=== PATIENT | female | born 1980 | race Caucasian/White ===

== ENCOUNTER → 2025-03-17 13:08 | Outpatient (BNVA) | payer MEDICAID, SELFPAY | PROVIDERS: Visit Provider Nurse Practitioner Women's Health | DX: Z34.80 Encounter for supervision of other normal pregnancy, unspecified trimester (principal) | CPT/HCPCS: 84315 ==

== ENCOUNTER → 2025-03-23 14:20 | Outpatient (BNVA) | payer MEDICAID, SELFPAY | PROVIDERS: Visit Provider Nurse Practitioner Women's Health | DX: Z36.9 Encounter for antenatal screening, unspecified (principal) | CPT/HCPCS: 76816 ==

== ENCOUNTER → 2025-03-28 08:00 | Outpatient (BNVA) | payer MEDICAID, SELFPAY | PROVIDERS: Visit Provider Nurse Practitioner Women's Health | DX: Z34.90 Encounter for supervision of normal pregnancy, unspecified, unspecified trimester (principal) | CPT/HCPCS: 80307; 84315; 87086 ==

== ENCOUNTER → 2025-04-20 07:57 | Outpatient (BNVA) | payer MEDICAID, BC, SELFPAY | PROVIDERS: Visit Provider Nurse Practitioner Women's Health | DX: O26.893 Other specified pregnancy related conditions, third trimester (principal); Z3A.38 38 weeks gestation of pregnancy | CPT/HCPCS: 76816 ==

== ENCOUNTER → 2025-04-27 08:19 | Outpatient (BNVA) | payer BC, MEDICAID, SELFPAY | PROVIDERS: Visit Provider Obstetrics & Gynecology | DX: O09.93 Supervision of high risk pregnancy, unspecified, third trimester (principal) | CPT/HCPCS: 84315; 86850; 86900; 87081 ==

== ENCOUNTER → 2025-05-04 08:01 | Outpatient (BNVA) | payer BC, MEDICAID, SELFPAY | PROVIDERS: Visit Provider Obstetrics & Gynecology | DX: O09.899 Supervision of other high risk pregnancies, unspecified trimester (principal) | CPT/HCPCS: 84315 ==

== ENCOUNTER → 2025-05-11 09:30 | Outpatient (BNVA) | payer BC, MEDICAID, SELFPAY | PROVIDERS: Visit Provider Obstetrics & Gynecology | DX: Z36.9 Encounter for antenatal screening, unspecified (principal); O09.899 Supervision of other high risk pregnancies, unspecified trimester | CPT/HCPCS: 76815; 84315 ==

== ENCOUNTER 2025-05-17 05:11 | Inpatient (IN) | payer BC, MEDICAID, SELFPAY ==
--- NOTE | 2025-05-16 08:20 | ANES.PREANE2 ---
Pre-Anesthetic Assessment Height/Weight: Height 1.52 m Operation Date: 05/17/25 07:20 Proposed Procedures p Section With Bilateral Tubal [id number] O32.1XXO Z30.2(Bilateral) - Raffaele Ga MD Familial anesthetic complications: none Was Beta Omar taken within 24 hours: N/A Was Clonidine taken within 24 hours: N/A Social No alcohol and No tobacco Exam alert, oriented x 3, clear to auscultation bilaterally and regular rate & rhythm Airway Mallampati: Class IV Dentition: full Anesthetic Plan ASA status: 2 Anesthesia: Regional (specify below) Risk of > 500 ml blood loss (7ml/kg in children): Yes, adequate IV access and fluids planned Medications/Allergies Home Medications ?Medication ?Instructions ?Recorded ?Confirmed ?Last Taken ?Type multivitamin with minerals-folic 1 tab PO DAILY 03/17/25 05/11/25 Unknown History acid 80 mcg chewable tablet (Centrum MultiGummies Women) sertraline 50 mg tablet (Zoloft) 50 mg PO DAILY #30 tabs 03/17/25 05/11/25 Unknown Rx nystatin 100,000 unit/gram topical 1 applic topical QID #30 grams 05/11/25 05/11/25 Unknown Rx powder cephalexin 500 mg capsule 500 mg PO BID #14 caps 05/12/25 Unknown Rx Allergies Allergy/AdvReac Type Severity Reaction Status Date / Time Latex, Natural Rubber Allergy Intermediate ALGY-Rash Verified 05/11/25 07:39 ON LICENSE OF [facility] Anesthesia Medical History (Updated 05/11/25 @ 09:11 by Raffaele Ga MD) Adult BMI 50.0-59.9 kg/sq m No pertinent past medical history neghx: htn, dm, thyroid, dvt/pe PCP: none Surgical History No pertinent past surgical history Family History Other Adopted Social History Smoking and tobacco/nicotine status: never used tobacco/nicotine
[2025-05-17] VITALS (26 sets, daily range): BP systolic 95–171; BP diastolic 43–86; PULSE 50–71; RESP 16–17; TEMP 36.7; O2SAT 95–97; BMI 52.0
[2025-05-17 05:57] LABS: Hematocrit 37.4 % (36-47); Hemoglobin 12.00 g/dL (11.27-16.99); Mean Corpuscular HGB Conc 32.1 g/dL (30-55); Mean Corpuscular Hemoglobin 26.7 pg (27-33); Mean Corpuscular Volume 83.1 fl (85-98); Nucleated Red Blood Cells % 0 %; Platelet Count 213 10^3/cmm (157-399); Red Blood Count 4.50 10^6/uL (3.85-5.65); White Blood Count 7.87 10^3/uL (3.29-11.43)
[2025-05-17] MEDS: citric acid-sodium citrate 30 mL UDC PO (06:53)
[2025-05-17] MEDS: metoclopramide 5 mg/mL SDV 2 mL 10 MG IVP (06:53)
--- NOTE | 2025-05-17 06:55 | P.ANESUD_ITS ---
Pre-Anesthetic Update Pre-Anesthetic Assessment: Date of Surgery/Procedure: 05/17/25 Preop Marcela gnosis: breech Proposed Procedure: Operation Date: 05/17/25 07:20 Proposed Procedures p Section With Bilateral Tubal [id number] O32.1XXO Z30.2(Bilateral) - Raffaele Ga MD Any changes to Pre-Anesthetic Assessment?: No Last Intake: 1700 Labs Last 48hrs: Short CBC 05/17/25 Range/Units 05:43 WBC 7.87 (3.29-11.43) 10^ 3/uL Hgb 12.00 (11.27-16.99) g/ dL Hct 37.4 (36-47) % MCV 83.1 L (85-98) fl Plt Count 213 (157-399) 10^3/c mm Neut % (Auto) 68.0 % Neut # (Auto) 5.36 (1.8-7.7) 10^3/u L Blood Bank 05/17/25 05:43 Blood Type O Positive Rho(D) Type Rh positive Antibody Screen Negative Vitals: Pulse Rate 58 L 05/17/25 06:52 Blood Pressure 153/86 05/17/25 06:52 Exam: Pre-Anes Outpt Exam: alert, oriented x 3 and clear to auscultation bilaterally
--- NOTE | 2025-05-17 07:08 | PM.OBGYHP ---
Providers/Chief Complaint Admitting Physician: Raffaele aG MD Primary INSULATION POWER UNIT TENDER: Raffaele Ga MD Chief Complaint: C Section HPI INSULATION POWER UNIT TENDER History of Present Illness Ms. Mckinnon is a 44 year old AMA patient with LMP of 08/16/2024, DEMARCO 05/23/2025 based on LMP, placing her at 39-2/7 weeks today. Her evaluation thus far shows no cervical dilation or detectable head presentation, confirming a breech status that necessitates an elective section. BMI of 52. +fm, NO CX, NO vb OR lof. RH pos BG Neg GBS Present Details : 1 Para: 0 Labs Rubella: Immune RPR: Negative GBS: Negative Review of Systems General: Reports: 10 or more systems reviewed and unremarkable except in HPI and below Medications/Allergies Home Medications ?Medication ?Instructions ?Recorded ?Confirmed ?Last Taken ?Type multivitamin with minerals-folic 1 tab PO DAILY 03/17/25 05/17/25 05/16/25 History acid 80 mcg chewable tablet (Centrum MultiGummies Women) sertraline 50 mg tablet (Zoloft) 50 mg PO DAILY #30 tabs 03/17/25 05/17/25 05/16/25 Rx nystatin 100,000 unit/gram topical 1 applic topical QID #30 grams 05/11/25 05/17/25 05/15/25 Rx powder Allergies Allergy/AdvReac Type Severity Reaction Status Date / Time Latex, Natural Rubber Allergy Intermediate ALGY-Rash Verified 05/17/25 05:46 PFSH INSULATION POWER UNIT TENDER PFSH: Medical History (Updated 05/17/25 @ 07:15 by Raffaele Ga MD) Adult BMI 50.0-59.9 kg/sq m No pertinent past medical history neghx: htn, dm, thyroid, dvt/pe PCP: none Surgical History No pertinent past surgical history Family History Other Adopted Social History Smoking and tobacco/nicotine status: never used tobacco/nicotine History History History 1 Term 0 0 Miscarriages/Ectopic Living Children 0 Care DEMARCO Calculator Estimated Delivery Date Method Current WG Current Estimate 05/23/25 LMP (Certain) 39w 1d Expected Delivery Route/Plan Flu vaccine completed on 11/24/2024 at [facility] Tdap completed on 03/03/2025 at [facility] Specific Issues/Plans ELDERLY MULTIGRAVIDA OBESITY BMI >50 BREECH 04/27/25 RH pos Vitals/I&O/Wt Last Vital Signs Pulse 58 L 05/17/25 06:52 BP 153/86 05/17/25 06:52 Weight last 48 hrs Weight 266 lb 8 oz Physical Exam : OTHER: Not dilated, not lenore, Intact membranes, US confirmed breech. Data 05/17/25 05:43 Results Labs OB ([facility]): Obstetrics 05/11/25 Blood Type O Positive Today Antibody Screen Negative Today Hct, (36-47) 37.4 % Today Hgb, (11.27-16.99) 12.00 g/dL Today Rho(D) Type Rh positive Today Plt Count, (157-399) 213 10^3/cmm Today Urine Opiates Screen, (Negative) Negative ng/mL 03/28/25 Ur Barbiturates Screen, (Negative) Negative ng/mL 03/28/25 Ur Phencyclidine Scrn, (Negative) Negative ng/mL 03/28/25 Ur Amphetamines Screen, (Negative) Negative ng/mL 03/28/25 U Benzodiazepines Scrn, (Negative) Negative ng/mL 03/28/25 Urine Cocaine Screen, (Negative) Negative ng/mL 03/28/25 U Marijuana (THC) Screen, (Negative) Negative ng/mL 03/28/25 Micro Urine Specimen 03/28/25 A&P Assessment and plan 1. Supervision of other high-risk : 2. 39 weeks gestation of : 3. Severe obesity due to excess calories affecting in third trimester: 4. Breech presentation, single or unspecified fetus: 5. Primigravida of advanced maternal age in third trimester: 6. Adult BMI 50.0-59.9 kg/sq m: Plan: Scheduled primary CS for Breech/confirmed today Bilateral total salpingectomy PDMP PDMP Reviewed: Not Reviewed Attestations Medical Necessity Statement*: Breech term with severe obesity and AMA needing section Coding Level of Care Code Acute Code for Chg Fwd Diagnoses Supervision of other high-risk O09.899 39 weeks gestation of Z3A.39 Severe obesity due to excess calories affecting in third trimester O99.213; E66.01 Obesity type affecting : severe obesity due to excess calories Trimester: third trimester Breech presentation, single or unspecified fetus O32.1XX0 Fetus number: single or unspecified fetus Primigravida of advanced maternal age in third trimester O09.513 Trimester: third trimester Adult BMI 50.0-59.9 kg/sq m Z68.43
--- NOTE | 2025-05-17 09:11 | PM.DELIVERY ---
Delivery Note: Date of delivery: May 17, 2025 Pre-delivery diagnoses: Breech term AMA BMI 52 Desires sterilization Post-delivery diagnoses: Same with BG 8lbs, Normal Procedure: LTCS with B.Salpingectomy Delivering Physician: Harmeet Findings: 350ml Post Delivery Diagnoses: Breech presentation, single or unspecified fetus: Qualifiers: Fetus number: single or unspecified fetus History History History 1 Term 0 0 Miscarriages/Ectopic Living Children 0 A&P Assessment and plan 1. Supervision of other high-risk : 2. Adult BMI 50.0-59.9 kg/sq m: 3. Breech presentation, single or unspecified fetus: 4. delivery delivered: Plan: To postop recovery in L&D PDMP PDMP Reviewed: Not Reviewed Coding Level of Care Code Acute Code for Chg Fwd Diagnoses Supervision of other high-risk O09.899 Adult BMI 50.0-59.9 kg/sq m Z68.43 Breech presentation, single or unspecified fetus O32.1XX0 Fetus number: single or unspecified fetus delivery delivered O82
--- NOTE | 2025-05-17 09:12 | PM.OP2 ---
Brief Operative Note Date of procedure: 05/17/25 Pre-op diagnosis: Term Breech, AMA, BMI 52,desires sterilization Post-op diagnosis: same (BG,8lbs, Normal APGARs, Total salpingectomy) Procedure Done: Primary LTCS with bilateral salpingectomy. Surgeon: Raffaele Ga Estimated blood loss (mL): 350 Complications: NONE Post-op Plan: Post Op Recovery Condition: stable Disposition: floor (post op L&D)
[2025-05-17] MEDS: HYDROcodone-acetaminophen 5-325 mg Tablet PO (17:31)
[2025-05-17] MEDS: ondansetron 2 mg/ML SDV 2 mL 4 MG IVP (17:31)
[2025-05-17 20:47] LABS: Hematocrit 33.2 % (36-47); Hemoglobin 10.80 g/dL (11.27-16.99); Mean Corpuscular HGB Conc 32.5 g/dL (30-55); Mean Corpuscular Hemoglobin 27.5 pg (27-33); Mean Corpuscular Volume 84.5 fl (85-98); Platelet Count 171 10^3/cmm (157-399); Red Blood Count 3.93 10^6/uL (3.85-5.65); White Blood Count 12.32 10^3/uL (3.29-11.43)
[2025-05-18 03:30] VITALS: BP 147/81; PULSE 74; RESP 16; TEMP 36.9
--- NOTE | 2025-05-18 09:11 | P.PN_ITS ---
CHIEF SUPPLY CHAIN OFFICER Subjective 2 Subjective: Interval history: She notes the usual post CS amount of discomfort and vag bleeding. She denies fever, chills, worsening pain or redness. Labor: Amniotic Membrane Status: Intact Monitor Mode: External C ontraction Pattern: Absent Vitals/I&O/Wt Last Vital Signs Temp 98.5 F 05/18/25 03:30 Pulse 74 05/18/25 03:30 Resp 16 05/18/25 03:30 BP 147/81 05/18/25 03:30 Pulse Ox 95 05/17/25 21:00 O2 Del Method Room Air 05/17/25 21:00 05/17/25 05/18/25 05/18/25 22:59 06:59 14:59 Output Total 480 / 1030 800 / 1830 Balance -480 / -980 -800 / -1780 Weight last 48 hrs Weight 266 lb 8 oz Physical Exam 2 Urinary Catheter Management: [place]: Cath Placed During This Visit: yes, but has since been removed by the nurse Reason for Continuing Indwelling Catheter: Decision to DC Catheter Urinary Catheter Date of Insertion: 05/17/25 Urinary Catheter Time of Insertion: 07:20 Date Urinary Catheter Removed: 05/17/25 Time Urinary Catheter Discontinued: 22:30 Data 05/17/25 20:35 A&P Assessment and plan 1. delivery delivered: 2. Adult BMI 50.0-59.9 kg/sq m: Plan: CS Type: Pfannensteil Subjective: She notes the usual amount of discomfort and vag bleeding. She denies fever, chills, worsening pain or redness. Objective:General: Overall no apparent distress. She exhibits the usual difficulty and discomfort moving around postoperatively. Folley removed. Voiding and passing gas. Abdomen: It has the normal post- appearance and the expected amount of tenderness. It is non-distended, normal active bowel sounds, fundus is firm C/S wound: It is healing nicely with the normal amount of discharge. dressing removed steri-strips in place. There is no surrounding cellulitis, underlying fluid collections or other evidence of infection. Extremities: No cords no tenderness, mild edema Impression: Recently post day 1, wound healing well no complications, afebrile, normotensive, pain controlled. Plan: Shower as usual and gently was the area of the incision with soap. Encourage daily ambulation. PDMP PDMP Reviewed: Not Reviewed Attestations 2 Medical Necessity Statement*: Patient still recovering from surgery Coding Level of Care Code Acute Code for Chg Fwd Diagnoses delivery delivered O82 Adult BMI 50.0-59.9 kg/sq m Z68.43
[2025-05-18] MEDS: PRENATAL VIT NO.130/IRON/FOLIC 1 EACH TABLET PO (09:16)
--- NOTE | 2025-05-18 09:31 | PM.OP ---
Operative Report Date of procedure: May 18, 2025 Surgeon: Raffaele Ga MD Procedure: PREOPERATIVE DIAGNOSES: 1. Intrauterine at 40 weeks. 2. Breech presentation. 3. AMA POSTOPERATIVE DIAGNOSES: 1. Intrauterine at 40 weeks. 2. Breech presentation. 3. AMA OPERATION PERFORMED: Primary low transverse section with bilateral salpingectomy . SURGEON: Raffaele Ga MD ANESTHESIA: Spinal anesthesia. COMPLICATIONS: None. ESTIMATED BLOOD LOSS: 350 mL. URINE OUTPUT: clear, non bloody IV Ab prophylaxis verbal order of Ancef 3 gram IV. OPERATIVE FINDINGS: Normal female with normal Apgars at one and five minutes with weight of ~8lbs. DESCRIPTION OF OPERATION: After informed consent, risks and benefits of the procedure was discussed with the patient. The patient was taken to the operating room where she was placed in the dorsal lithotomy position with leftward tilt. After placement of spinal anesthesia, which was found to be adequate, she was then prepped and draped in the usual sterile fashion.Pannus was taped for visualization of incision site. A Pfannenstiel skin incision was made with a scalpel and carried through to the underlying layer of fascia. The fascia was then nicked in the midline, extending bilaterally and sparing the inferior aspects. The fascia was dissected off the rectus muscles bluntly. The rectus muscles were in the midline, and peritoneum was identified, entered with hemostat, and extended superiorly and inferiorly with good visualization of the bladder. The bladder blade was then inserted. The vesicouterine peritoneum was identified and entered sharply with Metzenbaum scissors and extended bilaterally and then the bladder flap was created digitally. The uterine incision was then made with the scalpel and extended with bilateral index fingers in a crescent-shaped fashion. The legs one by one were then grasped and delivered, and then the arms then the 's flexed head was delivered in the usual fashion of a beech delivery, atraumatically. The cord was clamped and cut. The infant was then handed off to the awaiting pediatric staff. The placenta was then delivered manually, intact. The uterus was then exteriorized and cleared of all clots and debris. The uterine incision was then closed with 1-0 vicryl in a running locked fashion. A second layer of the same suture was used in an locked fashion for hemostasis. The uterus was then returned to the abdomen. Bilateral gutters were cleared off all clots and debris after irrigation and sucction with NS. Two 2cm linear sutures of 1-0 vicryl used perpendicular to the uterine axis for hemostasis .The uterine incision was noted to be hemostatic. Plain 1-0 gut used in running fashion for peritoneal approximation. The subfascial layer was noted to be hemostatic, and the fascia was closed with 1-0 Vicryl in a running fashion. The subcutaneous layer was then closed with 3-0 plain gut x2 layers . The skin was closed with 4-0 Vicryl in a subcuticular fashion with monocryl Reyes straight needle. Steri-Strips, and pressure dressing were applied. All instruments, needle, and lap counts were correct x2. The patient was taken to the recovery room in stable condition.
[2025-05-18 10:00] VITALS: BP 146/80; PULSE 71; RESP 15; TEMP 36.8; O2SAT 97
[2025-05-18] MEDS: HYDROcodone-acetaminophen 5-325 mg Tablet PO ×2 (10:53→20:45)
--- NOTE | 2025-05-18 11:03 | PC.NURSE ---
PATIENT UP TO SHOWER AND THEY CALLED OUT AND PATIENT WAS STANDING IN BATHROOM CRYING AND SHE SAID SHE WAS HURTING AND THIS VIDEO GAME ANIMATOR HELPED HER GET HER PANTIES AND PAD ON AND THEN ASSISTED HER TO CHAIR AND GOT HER MEDICATIONS FOR PAIN AND THEN TOOK HER DRESSING OFF AND INCISION LOOKS GREAT, CLEAN AND DRY WITH STERI STRIPS INTACT.
[2025-05-18 15:03] VITALS: BP 135/74; PULSE 71; RESP 17; O2SAT 97
[2025-05-18 21:15] VITALS: BP 162/81; PULSE 74; RESP 17; O2SAT 99
[2025-05-18 21:30] VITALS: BP 143/78; PULSE 83; RESP 17; O2SAT 99
[2025-05-19 04:20] VITALS: BP 161/81; PULSE 78; RESP 16; TEMP 36.4; O2SAT 98
[2025-05-19] MEDS: HYDROcodone-acetaminophen 5-325 mg Tablet PO (04:20)
[2025-05-19 04:35] VITALS: BP 144/78; PULSE 78
[2025-05-19 08:00] VITALS: BP 146/82; PULSE 73; RESP 16; TEMP 36.6
[2025-05-19] MEDS: PRENATAL VIT NO.130/IRON/FOLIC 1 EACH TABLET PO (08:33)
[2025-05-19] MEDS: ferrous sulfate EC 325 mg Tablet PO (08:33)
[2025-05-19 13:11] VITALS: BP 153/74; PULSE 80; RESP 18; TEMP 36.9
--- NOTE | 2025-06-09 20:42 | PM.OBGYDC ---
Discharge Providers POOL HALL INSPECTOR Date of Admission: 05/17/25 05:11 Date of Discharge: 05/19/25 Attending Provider at Admission: Raffaele Ga MD Attending Provider at Discharge: Raffaele Ga MD Primary POOL HALL INSPECTOR: Harmeet URIOSTEGUI Diagnoses at Discharge Discharge Diagnosis 1. delivery delivered: 2. Supervision of other high-risk : 3. Adult BMI 50.0-59.9 kg/sq m: 4. Breech presentation, single or unspecified fetus: Reason for Visit Reason for Visit: C Section Information Peripartum Data: Infant Delivery Method: Physical Exam Urinary Catheter Management: [place]: Cath Placed During This Visit: yes, but has since been removed by the nurse Reason for Continuing Indwelling Catheter: Decision to DC Catheter Urinary Catheter Date of Insertion: 05/17/25 Urinary Catheter Time of Insertion: 07:20 Date Urinary Catheter Removed: 05/17/25 Time Urinary Catheter Discontinued: 22:30 History History History 1 Term 1 0 Miscarriages/Ectopic 1 Living Children 1 Discharge Data Studies Completed and Pending Completed Studies During Hospitalization Category Date Time Status Pathology: Surgical [PTH] Routine Pth 05/17/25 11:02 Completed Laboratory Results WBC 12.32 10^3/uL (3.29-11.43) H 05/17/25 20:35 RBC 3.93 10^6/uL (3.85-5.65) 05/17/25 20:35 Hgb 10.80 g/dL (11.27-16.99) L 05/17/25 20:35 Hct 33.2 % (36-47) L 05/17/25 20:35 MCV 84.5 fl (85-98) L 05/17/25 20:35 MCH 27.5 pg (27-33) 05/17/25 20:35 MCHC 32.5 g/dL (30-55) 05/17/25 20:35 RDW 14.6 % (12.1-15.1) 05/17/25 20:35 Plt Count 171 10^3/cmm (157-399) 05/17/25 20:35 MPV 11.1 fL (7.4-10.4) H 05/17/25 20:35 Neut % (Auto) 68.0 % 05/17/25 05:43 Lymph % (Auto) 24.3 % 05/17/25 05:43 [place] % (Auto) 6.1 % 05/17/25 05:43 Eos % (Auto) 0.9 % 05/17/25 05:43 Baso % (Auto) 0.3 % 05/17/25 05:43 Neut # (Auto) 5.36 10^3/uL (1.8-7.7) 05/17/25 05:43 Lymph # (Auto) 1.9 10^3/uL (0.8-4.8) 05/17/25 05:43 [place] # (Auto) 0.5 10^3/uL (0.2-0.9) 05/17/25 05:43 Eos # (Auto) 0.1 10^3/uL (0.0-0.8) 05/17/25 05:43 Baso # (Auto) 0.0 10^3/uL (0.0-0.1) 05/17/25 05:43 Nucleated RBC % (auto) 0 % 05/17/25 05:43 Nucleated RBCs # 0.0 /100WBC 05/17/25 05:43 Blood Type O Positive 05/17/25 05:43 Rho(D) Type Rh positive 05/17/25 05:43 Antibody Screen Negative 05/17/25 05:43 Vitals Last Vital Signs Temp 98.5 F 05/19/25 13:11 Pulse 80 05/19/25 13:11 Resp 18 05/19/25 13:11 BP 153/74 05/19/25 13:11 Pulse Ox 98 05/19/25 04:20 O2 Del Method Room Air 05/19/25 04:20 Results Labs OB ([facility]): Obstetrics US 05/11/25 Blood Type O Positive 05/17/25 Antibody Screen Negative 05/17/25 Hct, (36-47) 33.2 % L 05/17/25 Hgb, (11.27-16.99) 10.80 g/dL L 05/17/25 Rho(D) Type Rh positive 05/17/25 Plt Count, (157-399) 171 10^3/cmm 05/17/25 Urine Opiates Screen, (Negative) Negative ng/mL 03/28/25 Ur Barbiturates Screen, (Negative) Negative ng/mL 03/28/25 Ur Phencyclidine Scrn, (Negative) Negative ng/mL 03/28/25 Ur Amphetamines Screen, (Negative) Negative ng/mL 03/28/25 U Benzodiazepines Scrn, (Negative) Negative ng/mL 03/28/25 Urine Cocaine Screen, (Negative) Negative ng/mL 03/28/25 U Marijuana (THC) Screen, (Negative) Negative ng/mL 03/28/25 Micro Urine Specimen 03/28/25 Discharge Plan Discharge Patient Disposition: Home Condition: Stable Prescriptions: Continued Centrum MultiGummies Women 80 mcg tablet,chewable 1 tab PO DAILY nystatin 100,000 unit/gram powder 1 applic topical QID Qty: 30 1RF No Action sertraline [Zoloft] 50 mg tablet 50 mg PO DAILY Qty: 30 6RF Discharge Order = DC NOW: Discharge Order (Routine); Ordered 05/19/25 Ordered By: Raffaele Ga Referrals: Raffaele Ga MD [Physician, POOL HALL INSPECTOR] - 05/23/25 10:15 am Referral Note: FOLLOW UP APPOINTMENT May AT 1015 WITH TRAVIS JAY RN. Discharge Diet: Usual diet Discharge Activity: Limit activity as instructed Patient Instructions: Depression (DC), Opioid Safety (DC), Preeclampsia and Eclampsia After Delivery (GEN), Hemorrhage (DC), OB [facility], OB Discharge Report, OB Food/Drug Interaction Guide, Opioid Safety, OB Home Care, Patient Portal & Concepcion Instructions, Abnormal Bleeding Activity Restrictions/Additional Instructions: Pelvic Rest 6 weeks Plan of Treatment: Visit in one week wound care Discharge Attestations POOL HALL INSPECTOR Time Spent in Discharge Care*: less than 30 min Coding Level of Care Code Acute Code for Chg Fwd Diagnoses delivery delivered O82 Supervision of other high-risk O09.899 Adult BMI 50.0-59.9 kg/sq m Z68.43 Breech presentation, single or unspecified fetus O32.1XX0 Fetus number: single or unspecified fetus
== END 2025-05-19 13:12 | disposition home or self-care (01) | DRG 785 ==
PROVIDERS: Admitting Provider Obstetrics & Gynecology; Visit Provider Obstetrics & Gynecology
PROC: (CPT 59514; principal; 2025-05-17 07:00)
DX: O32.1XX0 Maternal care for breech presentation, not applicable or unspecified (principal); O99.214 Obesity complicating childbirth; E66.01 Morbid (severe) obesity due to excess calories; Z3A.39 39 weeks gestation of pregnancy; Z37.0 Single live birth; O09.523 Supervision of elderly multigravida, third trimester; Z91.040 Latex allergy status
CPT/HCPCS: 12345; 36415; 51702; 59409; 85025; 85027; 86850; 86900; 88302; 96374; 96376; J0131; J0690; J1100; J1885; J2274; J2405; J2765; J3010; J3490; J7030; J9999

== ENCOUNTER → 2025-06-16 11:06 | Outpatient (BNVA) | payer BC, MEDICAID, SELFPAY | PROVIDERS: Visit Provider Nurse Practitioner | DX: R39.9 Unspecified symptoms and signs involving the genitourinary system (principal) | CPT/HCPCS: 81000; 87086 ==